=== PATIENT | male | born 2000 | race Caucasian/White ===

== ENCOUNTER 2020-11-30 12:42 | Inpatient (IN) | payer MEDICAID ==
[~2020-11-30] VITALS: Ht 180.3 cm; Wt 78.0 kg
[2020-11-30] MEDS ORDERED: PERTUSS(ACELL),DIPH,TET VAC/PF 0.5 ML SYRINGE IM. ONE (13:30)
[2020-11-30 13:52] LABS: BASOPHILS % (AUTO) 0.3 % (0.0-2.0); EOSINOPHILS % (AUTO) 0.1 % (1.0-6.0); HEMATOCRIT 39.6 % (41-53); HEMOGLOBIN 13.3 g/dL (13.5-17.5); LYMPHOCYTES # (AUTO) 1.7 K/uL (1.0-4.8); MEAN CORPUSCULAR HEMOGLOBIN 31.4 pg (26.0-34.0); MEAN CORPUSCULAR HGB CONC 33.5 G/dL (31.0-37.0); MEAN CORPUSCULAR VOLUME 94 fL (80-100); MONOCYTES % (AUTO) 6.3 % (2.0-9.0); NEUTROPHILS # (AUTO) 13.1 K/uL (1.8-7.7); NEUTROPHILS % (AUTO) 82.3 % (40.0-70.0); PLATELET COUNT (AUTO) 286 K/uL (150-450); RED BLOOD CELL COUNT(AUTO) 4.23 MIL/uL (4.50-5.90); RED CELL DISTRIBUTION WIDTH 13.7 % (11.5-14.5)
[2020-11-30 14:01] LABS: ANION GAP 14 mmol/L (8-16); CALCIUM, TOTAL 8.4 mg/dL (8.8-10.5); CARBON DIOXIDE 21 mmol/L (22-29); CHLORIDE 98 mmol/L (98-107); CREATININE 0.95 mg/dL (0.60-1.30); GLOMERULAR FILTR. RATE CALC > 60 mL/min (>60); GLUCOSE,RANDOM 64 mg/dL (70-110); POTASSIUM 3.6 mmol/L (3.5-5.1); SODIUM SERUM 133 mmol/L (136-145); UREA NITROGEN, BLOOD 25 mg/dL (7-18)
[2020-11-30 14:08] LABS: ALANINE AMINOTRANSFERASE 25 U/L (12-78); ALBUMIN 4.4 g/dL (3.4-5.0); ALKALINE PHOSPHATASE 79 U/L (46-116); ASPARTATE AMINOTRANSFERASE 41 U/L (15-37); BILIRUBIN,TOTAL 1.2 mg/dL (0.1-1.0); TOTAL PROTEIN, SERUM 7.5 g/dL (6.4-8.2)
[2020-11-30] MEDS ORDERED: DiphenhydrAMINE HCL 50 MG/ML VIAL ONE (14:09)
[2020-11-30] MEDS ORDERED: HALOPERIDOL LACTATE 5 MG/ML VIAL ONE (14:09)
[2020-11-30] MEDS ORDERED: LORazepam 2 MG/ML VIAL ONE (14:09)
[2020-11-30] MEDS ORDERED: CEPHALEXIN MONOHYDRATE 500 MG CAPSULE PO ONE (14:15)
[2020-11-30 14:30] LABS: AMPHET/METH SCREEN,URINE POSITIVE (NEGATIVE); BARBITURATE SCREEN, URINE NEGATIVE (NEGATIVE); BENZODIAZEPINES SCREEN,URINE NEGATIVE (NEGATIVE); CANNABINOID SCREEN,URINE POSITIVE (NEGATIVE); COCAINE SCREEN,URINE NEGATIVE (NEGATIVE); METHADONE SCREEN, URINE NEGATIVE (NEGATIVE); OPIATE SCREEN,URINE NEGATIVE (NEGATIVE); PHENCYCLIDINE SCREEN,URINE NEGATIVE (NEGATIVE)
[2020-11-30] MEDS ORDERED: DiphenhydrAMINE HCL 50 MG/ML VIAL IM ONE (14:30)
[2020-11-30] MEDS ORDERED: LORazepam 2 MG/ML VIAL IM ONE (14:30)
[2020-11-30] MEDS ORDERED: HALOPERIDOL LACTATE 5 MG/ML VIAL IM ONE (14:30)
[2020-11-30 16:53] LABS: COVID AG,FIA SOURCE NASOPHARYNGEAL
[2020-11-30 19:40] VITALS: BP 115/65
[2020-12-01 00:14] VITALS: BP 112/64
[2020-12-01 07:40] LABS: CHOL/HDL RATIO 2.5 (4.2-7.3)
[2020-12-01 08:23] VITALS: BP 115/71
[2020-12-01] MEDS: CEPHALEXIN MONOHYDRATE 500 MG CAPSULE PO SCH ×3 (08:34→16:37)
[2020-12-01] MEDS: LORazepam 2 MG TABLET PO PRN (08:34)
[2020-12-01] MEDS: CLINDAMYCIN HCL 300 MG CAPSULE PO SCH ×3 (08:34→16:37)
[2020-12-01] MEDS ORDERED: ALBUTEROL SULFATE HFA 90 MCG/PUFF 8 GM INHALER IH PRN (08:45)
[2020-12-01] MEDS ORDERED: DOCUSATE SODIUM 100 MG CAPSULE PO PRN (08:45)
[2020-12-01] MEDS ORDERED: GuaiFENesin/D-METHORPHAN [SUGAR-FREE] 200-20MG/10 ML SYRUP UDCUP PO PRN (08:45)
[2020-12-01] MEDS ORDERED: CloNIDine HCL 0.1 MG TABLET PO PRN (08:45)
[2020-12-01] MEDS ORDERED: LOPERAMIDE HCL 2 MG CAPSULE PO PRN (08:45)
[2020-12-01] MEDS ORDERED: ONDANSETRON HCL 4 MG TABLET PO PRN (08:45)
[2020-12-01] MEDS ORDERED: ACETAMINOPHEN 325 MG TABLET PO PRN (08:45)
[2020-12-01] MEDS ORDERED: MAG HYDROX/AL HYDROX/SIMETH ES 30 ML SUSPENSION UDCUP PO PRN (08:45)
[2020-12-01] MEDS ORDERED: MAGNESIUM HYDROXIDE SUSPENSION 30 ML UDCUP PO PRN (08:45)
[2020-12-01] MEDS ORDERED: PETROLATUM,WHITE 28 GM JELLY TP PRN (08:45)
[2020-12-01 16:12] VITALS: BP 103/60
[2020-12-01] MEDS: OLANZapine 5 MG TABLET PO SCH (16:36)
[2020-12-02 05:59] VITALS: BP 103/52
[2020-12-02 07:37] LABS: BASOPHILS % (AUTO) 0.5 % (0.0-2.0); EOSINOPHILS % (AUTO) 3.6 % (1.0-6.0); HEMATOCRIT 40.8 % (41-53); HEMOGLOBIN 13.7 g/dL (13.5-17.5); LYMPHOCYTES # (AUTO) 1.7 K/uL (1.0-4.8); MEAN CORPUSCULAR HEMOGLOBIN 31.8 pg (26.0-34.0); MEAN CORPUSCULAR HGB CONC 33.6 G/dL (31.0-37.0); MEAN CORPUSCULAR VOLUME 95 fL (80-100); MONOCYTES # (AUTO) 0.6 K/uL (0.1-1.0); MONOCYTES % (AUTO) 9.8 % (2.0-9.0); NEUTROPHILS # (AUTO) 3.9 K/uL (1.8-7.7); NEUTROPHILS % (AUTO) 60.1 % (40.0-70.0); PLATELET COUNT (AUTO) 282 K/uL (150-450); RED BLOOD CELL COUNT(AUTO) 4.31 MIL/uL (4.50-5.90); RED CELL DISTRIBUTION WIDTH 13.8 % (11.5-14.5)
[2020-12-02 07:51] LABS: HEMOGLOBIN A1C 5.3 % (3.8-5.6)
[2020-12-02 08:14] LABS: FREE T4 (FREE THYROXINE) 1.26 ng/dL (0.76-1.46); THYROID STIMULATING HORMONE 0.72 uIU/mL (0.36-3.74)
[2020-12-02] MEDS: LORazepam 2 MG TABLET PO PRN ×2 (08:28→16:52)
[2020-12-02] MEDS: CLINDAMYCIN HCL 300 MG CAPSULE PO SCH ×3 (08:28→16:51)
[2020-12-02] MEDS: OLANZapine 5 MG TABLET PO SCH ×2 (08:28→16:51)
[2020-12-02] MEDS: CEPHALEXIN MONOHYDRATE 500 MG CAPSULE PO SCH ×3 (08:28→16:51)
[2020-12-02 09:15] VITALS: BP 121/65
[2020-12-02 16:10] VITALS: BP 117/64
[2020-12-03 04:12] VITALS: BP 112/68
[2020-12-03 08:30] VITALS: BP 110/60
[2020-12-03] MEDS: OLANZapine 5 MG TABLET PO SCH ×2 (08:45→16:44)
[2020-12-03] MEDS: CEPHALEXIN MONOHYDRATE 500 MG CAPSULE PO SCH ×3 (08:46→16:44)
[2020-12-03] MEDS: LORazepam 2 MG TABLET PO PRN ×2 (08:46→16:44)
[2020-12-03] MEDS: CLINDAMYCIN HCL 300 MG CAPSULE PO SCH ×3 (08:47→16:44)
[2020-12-03 16:29] VITALS: BP 113/70
[2020-12-04 00:23] VITALS: BP 121/70
[2020-12-04 08:36] VITALS: BP 104/58
[2020-12-04] MEDS: OLANZapine 5 MG TABLET PO SCH ×2 (08:39→16:25)
[2020-12-04] MEDS: LORazepam 2 MG TABLET PO PRN ×2 (08:39→16:26)
[2020-12-04] MEDS: CLINDAMYCIN HCL 300 MG CAPSULE PO SCH ×3 (08:39→16:25)
[2020-12-04] MEDS: CEPHALEXIN MONOHYDRATE 500 MG CAPSULE PO SCH ×3 (08:39→16:25)
[2020-12-04 16:21] VITALS: BP 112/62
[2020-12-05 06:31] VITALS: BP 115/72
[2020-12-05 08:36] VITALS: BP 116/65
[2020-12-05] MEDS: OLANZapine 5 MG TABLET PO SCH ×2 (09:15→17:56)
[2020-12-05] MEDS: CEPHALEXIN MONOHYDRATE 500 MG CAPSULE PO SCH ×3 (09:15→17:56)
[2020-12-05] MEDS: CLINDAMYCIN HCL 300 MG CAPSULE PO SCH ×3 (09:16→17:56)
[2020-12-05] MEDS: LORazepam 2 MG TABLET PO PRN (13:38)
[2020-12-05 16:06] VITALS: BP 127/82
[2020-12-05] MEDS: OLANZapine 7.5 MG TABLET PO SCH (20:47)
[2020-12-06 06:03] VITALS: BP 128/61
[2020-12-06 08:34] VITALS: BP 112/62
[2020-12-06] MEDS: OLANZapine 7.5 MG TABLET PO SCH ×2 (08:35→20:11)
[2020-12-06] MEDS: CLINDAMYCIN HCL 300 MG CAPSULE PO SCH ×3 (08:35→17:20)
[2020-12-06] MEDS: CEPHALEXIN MONOHYDRATE 500 MG CAPSULE PO SCH ×3 (08:35→17:20)
[2020-12-06] MEDS: LORazepam 2 MG TABLET PO PRN ×2 (08:35→17:20)
[2020-12-06 16:16] VITALS: BP 139/77
[2020-12-06] MEDS: HALOPERIDOL 5 MG TABLET PO PRN (17:20)
[2020-12-07 05:46] VITALS: BP 108/58
[2020-12-07 08:00] VITALS: BP 107/56
[2020-12-07] MEDS: CLINDAMYCIN HCL 300 MG CAPSULE PO SCH ×3 (08:30→16:35)
[2020-12-07] MEDS: LORazepam 2 MG TABLET PO PRN ×2 (08:31→16:36)
[2020-12-07] MEDS: OLANZapine 7.5 MG TABLET PO SCH ×2 (08:31→20:38)
[2020-12-07] MEDS: CEPHALEXIN MONOHYDRATE 500 MG CAPSULE PO SCH ×3 (08:31→16:36)
[2020-12-07 16:07] VITALS: BP 113/69
[2020-12-07] MEDS: NICOTINE 14 MG/24 HOUR PATCH TD PRN (17:38)
[2020-12-07] MEDS: ZOLPIDEM TARTRATE 10 MG TABLET PO PRN (20:38)
[2020-12-08] MEDS: LORazepam 2 MG TABLET PO PRN ×3 (03:39→16:34)
[2020-12-08] MEDS: HALOPERIDOL 5 MG TABLET PO PRN (03:39)
[2020-12-08 03:43] VITALS: BP 112/74
[2020-12-08] MEDS: CLINDAMYCIN HCL 300 MG CAPSULE PO SCH ×3 (08:26→16:34)
[2020-12-08] MEDS: CEPHALEXIN MONOHYDRATE 500 MG CAPSULE PO SCH ×3 (08:26→16:33)
[2020-12-08] MEDS: OLANZapine 7.5 MG TABLET PO SCH ×2 (08:26→20:34)
[2020-12-08 09:00] VITALS: BP 116/60
[2020-12-08] MEDS: NICOTINE 14 MG/24 HOUR PATCH TD PRN (13:38)
[2020-12-08 16:00] VITALS: BP 124/77
[2020-12-09 05:44] VITALS: BP 111/60
[2020-12-09 08:29] VITALS: BP 113/62
[2020-12-09] MEDS: LORazepam 2 MG TABLET PO PRN ×2 (08:33→16:16)
[2020-12-09] MEDS: CEPHALEXIN MONOHYDRATE 500 MG CAPSULE PO SCH ×3 (08:33→16:15)
[2020-12-09] MEDS: CLINDAMYCIN HCL 300 MG CAPSULE PO SCH ×3 (08:33→16:15)
[2020-12-09] MEDS: OLANZapine 7.5 MG TABLET PO SCH ×2 (08:33→20:22)
[2020-12-09] MEDS: NICOTINE 14 MG/24 HOUR PATCH TD PRN (11:30)
[2020-12-09 16:09] VITALS: BP 110/65
[2020-12-09] MEDS: ZOLPIDEM TARTRATE 10 MG TABLET PO PRN (20:22)
[2020-12-10 01:25] VITALS: BP 112/64
[2020-12-10 08:31] VITALS: BP 130/76
[2020-12-10] MEDS: OLANZapine 7.5 MG TABLET PO SCH ×2 (09:20→20:42)
[2020-12-10] MEDS: CEPHALEXIN MONOHYDRATE 500 MG CAPSULE PO SCH ×3 (09:20→16:41)
[2020-12-10] MEDS: CLINDAMYCIN HCL 300 MG CAPSULE PO SCH ×3 (09:20→16:41)
[2020-12-10] MEDS: NICOTINE 14 MG/24 HOUR PATCH TD PRN (10:59)
[2020-12-10 16:42] VITALS: BP 119/65
[2020-12-10] MEDS: HALOPERIDOL 5 MG TABLET PO PRN (16:42)
[2020-12-10] MEDS: LORazepam 2 MG TABLET PO PRN (17:00)
[2020-12-11 06:40] VITALS: BP 120/74
[2020-12-11] MEDS: OLANZapine 7.5 MG TABLET PO SCH ×2 (08:32→20:40)
[2020-12-11 09:02] VITALS: BP 118/60
[2020-12-11 16:22] VITALS: BP 107/68
[2020-12-11] MEDS: LORazepam 2 MG TABLET PO PRN (17:28)
[2020-12-12 05:53] VITALS: BP 105/57
[2020-12-12 08:11] VITALS: BP 118/65
[2020-12-12] MEDS: LORazepam 2 MG TABLET PO PRN ×2 (08:38→14:54)
[2020-12-12] MEDS: OLANZapine 7.5 MG TABLET PO SCH ×2 (08:38→20:35)
[2020-12-12 16:29] VITALS: BP 109/65
[2020-12-12] MEDS: NICOTINE 14 MG/24 HOUR PATCH TD PRN (18:04)
[2020-12-13] MEDS: LORazepam 2 MG TABLET PO PRN ×4 (03:26→20:47)
[2020-12-13] MEDS: HALOPERIDOL 5 MG TABLET PO PRN ×2 (03:26→16:08)
[2020-12-13 04:11] VITALS: BP 110/70
[2020-12-13] MEDS: OLANZapine 7.5 MG TABLET PO SCH ×2 (08:32→20:47)
[2020-12-13 09:27] VITALS: BP 119/59
[2020-12-13 16:35] VITALS: BP 122/64
[2020-12-14 04:09] VITALS: BP 133/72
[2020-12-14] MEDS: LORazepam 2 MG TABLET PO PRN ×3 (08:00→16:31)
[2020-12-14] MEDS: OLANZapine 7.5 MG TABLET PO SCH ×2 (08:39→20:41)
[2020-12-14 08:51] VITALS: BP 127/76
[2020-12-14 16:16] VITALS: BP 134/79
[2020-12-14] MEDS: HALOPERIDOL 5 MG TABLET PO PRN (16:31)
[2020-12-15 06:11] VITALS: BP 126/82
[2020-12-15] MEDS: OLANZapine 7.5 MG TABLET PO SCH ×2 (08:08→19:49)
[2020-12-15] MEDS: HALOPERIDOL 5 MG TABLET PO PRN (08:08)
[2020-12-15] MEDS: LORazepam 2 MG TABLET PO PRN ×2 (08:09→14:02)
[2020-12-15 08:51] VITALS: BP 138/78
[2020-12-15] MEDS: ERYTHROMYCIN 0.5% 3.5 GM TUBE OPHTHALMIC OINTMENT OS SCH (16:14)
[2020-12-15 16:28] VITALS: BP 122/76
[2020-12-16 05:52] VITALS: BP 107/59
[2020-12-16] MEDS: LORazepam 2 MG TABLET PO PRN (08:15)
[2020-12-16] MEDS: ERYTHROMYCIN 0.5% 3.5 GM TUBE OPHTHALMIC OINTMENT OS SCH ×3 (08:24→16:06)
[2020-12-16] MEDS: OLANZapine 7.5 MG TABLET PO SCH ×2 (08:24→20:28)
[2020-12-16 08:28] VITALS: BP 121/73
[2020-12-16] MEDS: NICOTINE 14 MG/24 HOUR PATCH TD PRN (14:05)
[2020-12-16] MEDS ORDERED: LORazepam 2 MG TABLET PO PRN (14:30)
[2020-12-16] MEDS: BusPIRone HCL 5 MG TABLET PO SCH ×2 (16:06→20:28)
[2020-12-16 16:19] VITALS: BP 111/61
[2020-12-16] MEDS: IBUPROFEN 400 MG TABLET PO PRN (17:43)
[2020-12-16] MEDS: ZOLPIDEM TARTRATE 10 MG TABLET PO PRN (20:28)
[2020-12-17 01:30] VITALS: BP 114/68
[2020-12-17 08:21] VITALS: BP 114/62
[2020-12-17] MEDS: OLANZapine 7.5 MG TABLET PO SCH ×2 (08:33→20:25)
[2020-12-17] MEDS: BusPIRone HCL 5 MG TABLET PO SCH ×3 (08:33→20:25)
[2020-12-17] MEDS: ERYTHROMYCIN 0.5% 3.5 GM TUBE OPHTHALMIC OINTMENT OS SCH ×3 (08:33→16:35)
[2020-12-17] MEDS: MULTIVITAMINS WITH MINERALS, THERAPEUTIC TABLET PO SCH (08:33)
[2020-12-17] MEDS: NICOTINE 14 MG/24 HOUR PATCH TD PRN (10:07)
[2020-12-17 16:44] VITALS: BP 134/78
[2020-12-17] MEDS: IBUPROFEN 400 MG TABLET PO PRN (16:49)
[2020-12-17] MEDS: ZOLPIDEM TARTRATE 10 MG TABLET PO PRN (20:25)
[2020-12-18 05:32] VITALS: BP 121/67
[2020-12-18] MEDS ORDERED: OLAN7.5T22 PO ×2 (07:40→07:43)
[2020-12-18] MEDS ORDERED: BUSP5TAB20 PO ×2 (07:40→07:41)
[2020-12-18] MEDS ORDERED: ERYT3.5O8 OU (07:54)
[2020-12-18] MEDS: ERYTHROMYCIN 0.5% 3.5 GM TUBE OPHTHALMIC OINTMENT OS SCH (08:27)
[2020-12-18] MEDS: MULTIVITAMINS WITH MINERALS, THERAPEUTIC TABLET PO SCH (08:28)
[2020-12-18] MEDS: BusPIRone HCL 5 MG TABLET PO SCH (08:28)
[2020-12-18] MEDS: OLANZapine 7.5 MG TABLET PO SCH (08:28)
[2020-12-18 09:03] VITALS: BP 118/71
== END 2020-12-18 09:45 | disposition home or self-care (01) | DRG 750 ==
LOC: EMS 12:42 → EDSEX 12:42 → B3A 16:44 → EDBD 16:44 → B3A 17:53
DX: F20.0 Paranoid schizophrenia (principal); R45.851 Suicidal ideations; E87.1 Hypo-osmolality and hyponatremia; D64.9 Anemia, unspecified; F10.10 Alcohol abuse, uncomplicated; S92.422A Displaced fracture of distal phalanx of left great toe, initial encounter for closed fracture; F12.10 Cannabis abuse, uncomplicated; F15.10 Other stimulant abuse, uncomplicated; L03.032 Cellulitis of left toe; Z20.822 Contact with and (suspected) exposure to COVID-19; Z59.0 Homelessness; Z79.899 Other long term (current) drug therapy; Z91.19 Patient's noncompliance with other medical treatment and regimen; W18.39XA Other fall on same level, initial encounter; Y93.89 Activity, other specified; Y92.89 Other specified places as the place of occurrence of the external cause; Y99.8 Other external cause status
CPT/HCPCS: 80053; 80061; 83036; 84439; 84443; 85025; 90715; 99291; G0480; J1200; J1630; J2060